=== PATIENT | female | born 1970 | race Caucasian/White ===

== ENCOUNTER 2022-04-18 08:34 | Emergency (ER) | payer OTHER, SELFPAY ==
[2022-04-18] VITALS (12 sets, daily range): BP systolic 116–158; BP diastolic 71–97; PULSE 80–97; RESP 16–22; TEMP 36.7; O2SAT 94–100; BMI 25.7
--- NOTE | 2022-04-18 08:52 | XRR_ITS ---
PROCEDURE INFORMATION: Exam: XR Chest Exam date and time: 04/18/2022 9:37 AM Age: 51 years old Clinical indication: Other: Epigastric pain; Additional info: Epigastric pain/chest pain TECHNIQUE: Imaging protocol: Radiologic exam of the chest. Views: 1 view. COMPARISON: CT abdomen pelvis w con* [id number] 04/18/2022 9:24 AM FINDINGS: Lungs: Unremarkable. No consolidation. Pleural spaces: Unremarkable. No pleural effusion. No pneumothorax. Heart/Mediastinum: Unremarkable. No cardiomegaly. Bones/joints: Unremarkable. XR/XR chest 1V portable [id number] IMPRESSION: No acute findings.
--- NOTE | 2022-04-18 08:53 | ECG_ITS ---
[facility] Test Date: 2022-04-18 Pat Name: Zara Hernandez Department: Room: Gender: Female Recovery Analyst: : 1970 Requested By: Moody Lockett Order Number: [id number] Reading MD: MARIE SANTOS Measurements Intervals [place] Rate: 92 P: 56 SD: 159 QRS: 1 QRSD: 89 T: 61 QT: 334 QTc: 413 Interpretive Statements SINUS RHYTHM POSSIBLE LEFT ATRIAL ENLARGEMENT [-0.1mV P-WAVE IN V1/V2] No previous ECG available for comparison Electronically Signed On 04-18-2022 17:40:14 CDT by MARIE SANTOS [id number]
--- NOTE | 2022-04-18 08:54 | CT_ITS ---
WS: [id number] CT ABDOMEN AND PELVIS WITH CONTRAST HISTORY: abdominal pain, n/v TECHNIQUE: Imaging performed of the abdomen and pelvis with IV contrast. Single phase imaging of the abdomen. Coronal and sagittal reformats are submitted. All CT scans at [facility] use at [address] one of these dose optimization techniques: automated exposure control; mA and/or kV adjustment per patient size (includes targeted exams where dose is matched to clinical indication); or iterative re construction. IV CONTRAST: Omnipaque 350; 100 mL IV. Oral contrast: No DLP: 413.75 mGy.cm COMPARISON: None available. Lower thorax: Lung bases are clear. Heart is normal size. Small hiatal hernia. Liver/biliary system: Normal size with no intrahepatic dilatation. No portal vein thrombus. Gallbladder: Contracted gallbladder with wall enhancement. No intrahepatic bile duct dilatation. Alth ough the common bile duct is not dilated there is wall enhancement consistent with cholangitis. Pancreas: Markedly abnormal pancreas. The pancreas is enlarged and edematous with a large amount of p eripancreatic edema extending from above the pancreas inferiorly to near the aortic bifurcation and i nto the gallbladder fossa. There is encasement of edema and inflammation surrounding the duodenal C-l oop. Pancreatic duct is not dilated. The entire pancreas does enhance. Spleen: Normal size spleen. No mass or infarct. Adrenal glands: Normal. Right kidney: Normal. Left kidney: Normal. Aorta: Mild atherosclerosis with no aneurysm. SMA and celiac axis are normally enhancing. Lymphadenopathy: None. Free fluid: No free fluid. GI tract: Nondistended stomach. Submucosal edema involving the antrum and duodenum. No small bowel ob struction. There is additional mild submucosal edema involving the splenic flexure and descending col on over a short segment. Normal appendix. A few scattered sigmoid diverticula. Abdominal wall: Unremarkable abdominal wall. No hernia. Pelvis: Well-distended urinary bladder. Enhancing RIGHT uterine mass measures 3.8 x 3.2 cm consistent with a fibroid. There is mild thickening of the cervix which needs to be evaluated. Bones: Unremarkable. CT/CT abdomen pelvis w con* [id number] IMPRESSION: 1. Severe changes of acute pancreatitis. There is marked diffuse peripancreati c edema and inflammation with extension to involve the adjacent stomach, duoden um, splenic flexure, common bile duct and gallbladder fossa. 2. Enhancement without dilatation of the common bile duct wall consistent with cholangitis. 3. Contracted gallbladder. 4. No hemorrhage or nonenhancement within the pancreas. There is no pseudocyst or abscess at this time. 5. Normal appendix. 6. Fibroid uterus. 7. Diffuse soft tissue thickening involving the cervix. Recommend transvaginal pelvic ultrasound imaging evaluation and BIOINFORMATICS DEVELOPER evaluation to exclude cervical ne oplasm.
--- NOTE | 2022-04-18 08:55 | W.ED.ABDPA2 ---
Documented by User: [email or web address] Galan 04/18/22 15:58 HPI - Abdominal Pain General: Chief Complaint: Abdominal Pain Stated Complaint: abd pain Time Seen by Provider: 04/18/22 08:35 History of Present Illness: Patient is a 51-year-old female comes to the ED with abdominal pain. Symptoms started approximately 1 week ago. She reports having abdominal pain, nausea and vomiting initially. For the first 2 days patient had nausea and vomiting with episodes of emesis every couple hours. Her nausea has improved and over the past several days but she still has some occasional episodes of emesis. She also reports having abdominal pain has been going on now for the past week. She reports lower abdominal pain that radiates up towards her stomach. She also reports having epigastric pain that she describes as a burning type pain. Pain radiates into her back as well. Pain is constant and worsens after she eats. She rates her pain currently a 6 out of 10. She has a decreased appetite. She had a fever on her first day of symptoms but has not had any other fevers over the past week. She has been trying to manage her symptoms by drinking clear liquids and eating soups, but she is not getting better. She reports normal daily bowel movements. Denies any constipation, diarrhea, blood in stool, dysuria or hematuria. Patient states that after 9 months of not having a period she just started having vaginal bleeding this week as well. Associated Symptoms: Reports nausea and vomiting; Denies chills, constipation, diarrhea, dysuria, fever(s), hematochezia and hematuria Review of Systems Const: Reports: change in appetite (Decreased); Denies: fever(s), chills or fatigue Eyes: Denies: change in vision or eye discomfort ENMT: Denies: throat pain, odynophagia, nasal discharge or nasal congestion Card: Reports: chest pain (Epigastric pain); Denies: palpitations, edema, swelling of feet/ankles, dyspnea on exertion or orthopnea Resp: Denies: dyspnea, productive cough or non-productive cough GI: Reports: abdominal pain, nausea and vomiting; Denies: diarrhea, constipation or hematochezia : Reports: vaginal bleeding; Denies: flank pain, dysuria or hematuria Musc: Denies: neck pain, back pain or extremity swelling Skin/Breast: Denies: rash or new lesions Neuro: Denies: headache(s), numbness in extremities or weakness in extremities PFS ED PFSH: Medical History No pertinent family history Surgical History No pertinent past surgical history Physical Exam Const: COMMON NORMALS: patient oriented x3, healthy appearing and alert GENERAL APPEARANCE: cooperative HENMT: COMMON NORMALS: normocephalic HEAD & SCALP: normocephalic MOUTH: Normal oral and palatal mucosa present THROAT: posterior oropharynx normal and uvula midline Neck/C-Spine: COMMON NORMALS: supple GENERAL: Yes normal visual inspection Resp: COMMON NORMALS: normal respiratory effort, No retractions, No use of accessory muscles and clear to auscultation bilaterally AUSCULTATION: clear to auscultation bilaterally Cardio: COMMON NORMALS: regular rate, regular rhythm, S1 normal heart sound present, S2 normal heart sound present, No gallops present (Cardio), No clicks present (Cardio), No murmurs present (Cardio) and Peripheral pulses 2+ throughout RATE: regular rate RHYTHM: regular rhythm HEART SOUNDS: S1 normal heart sound present and S2 normal heart sound present PERIPHERAL PULSES: Peripheral pulses 2+ throughout GI: COMMON NORMALS: Normal to inspection, nondistended, normoactive bowel sounds present, Soft to palpation and no masses PALPATION: Yes Soft to palpation and Yes Tenderness to palpation present (GI) (Epigastric and generalized abdominal tenderness.) : COMMON NORMALS: Yes no CVA tenderness BLADDER/KIDNEY EXAM: Yes no CVA tenderness Back/Pelvis: COMMON NORMALS: no CVA tenderness Extremity: COMMON NORMALS: normal to inspection Neuro: COMMON NORMALS: patient oriented x3 SENSORIUM/ORIENTATION: Yes alert GAIT: Yes Normal gait present Skin: GENERAL SKIN EXAM: dry skin Course Vital Signs: Vital signs: Vital Signs Temperature 98.0 F 04/18/22 09:52 Pulse Rate 97 04/18/22 16:08 Respiratory Rate 20 H 04/18/22 16:17 Blood Pressure 132/85 04/18/22 16:08 Pulse Oximetry 98 04/18/22 16:17 Oxygen Delivery Me thod 04/18/22 16:08 MDM - Abdominal Pain Medical Decision Making Patient is a 51-year-old female comes to the ED with abdominal pain. Symptoms started approximately 1 week ago. She reports having abdominal pain, nausea and vomiting initially. For the first 2 days patient had nausea and vomiting with episodes of emesis every couple hours. Her nausea has improved and over the past several days but she still has some occasional episodes of emesis. She also reports having abdominal pain has been going on now for the past week. She reports lower abdominal pain that radiates up towards her stomach. She also reports having epigastric pain that she describes as a burning type pain. Pain radiates into her back as well. Pain is constant and worsens after she eats. She rates her pain currently a 6 out of 10. She has a decreased appetite. Vitals are stable. Exam of patient shows generalized tenderness all throughout her abdomen and epigastric region of abdomen. Rest of her exam is benign. White blood cell count is 16.6. Lipase 29. Rest of her labs are unremarkable. CT of abdomen pelvis showed severe changes of acute pancreatitis and also noted some thickening involving the cervix which recommended transvaginal pelvic ultrasound done outpatient for further evaluation. I spoke with patient about CT findings and that she will need to get an outpatient transvaginal pelvic ultrasound. She is diagnosed with pancreatitis and I discussed case with Dr. Vasquez and he will be taking over care of patient and having her admitted. Lab Data I reviewed the patient's lab results. 04/18/22 09:10 04/18/22 09:10 Labs/Radiology: Radiology Impressions Chest X-Ray 04/18/22 08:52 IMPRESSION: No acute findings. Abdomen/Pelvis CT 04/18/22 08:54 IMPRESSION: 1. Severe changes of acute pancreatitis. There is marked diffuse peripancreatic edema and inflammation with extension to involve the adjacent stomach, duodenum, splenic flexure, common bile duct and gallbladder fossa. 2. Enhancement without dilatation of the common bile duct wall consistent with cholangitis. 3. Contracted gallbladder. 4. No hemorrhage or nonenhancement within the pancreas. There is no pseudocyst or abscess at this time. 5. Normal appendix. 6. Fibroid uterus. 7. Diffuse soft tissue thickening involving the cervix. Recommend transvaginal pelvic ultrasound imaging evaluation and APPLICATION DEVELOPMENT LIAISON evaluation to exclude cervical neoplasm. Laboratory Results WBC 16.6 10^3/uL (4.0-10.0) H 04/18/22 09:10 RBC 4.08 10^6/uL (4.1-5.3) L 04/18/22 09:10 Hgb 11.8 g/dL (11.5-15.3) 04/18/22 09:10 Hct 36.3 % (37.0-47.0) L 04/18/22 09:10 MCV 89.0 fl (81-99) 04/18/22 09:10 MCH 28.9 pg (28.0-34.0) 04/18/22 09:10 MCHC 32.5 g/dL (30.0-36.0) 04/18/22 09:10 RDW 12.9 % (12.1-15.1) 04/18/22 09:10 Plt Count 283 10^3/cmm (130-400) 04/18/22 09:10 MPV 10.3 fL (7.4-10.4) 04/18/22 09:10 Neut % (Auto) 84.9 % 04/18/22 09:10 Lymph % (Auto) 6.5 % 04/18/22 09:10 [place] % (Auto) 6.9 % 04/18/22 09:10 Eos % (Auto) 0.4 % 04/18/22 09:10 Baso % (Auto) 0.4 % 04/18/22 09:10 Neut # (Auto) 14.06 10^3/uL (1.8-7.7) H 04/18/22 09:10 Lymph # (Auto) 1.1 10^3/uL (0.8-4.8) 04/18/22 09:10 [place] # (Auto) 1.1 10^3/uL (0.2-0.9) H 04/18/22 09:10 Eos # (Auto) 0.1 10^3/uL (0.0-0.8) 04/18/22 09:10 Baso # (Auto) 0.1 10^3/uL (0.0-0.1) 04/18/22 09:10 Nucleated RBC % (auto) 0 % 04/18/22 09:10 Nucleated RBCs # 0.0 /100WBC 04/18/22 09:10 Sodium 135 mmol/L (136-145) L 04/18/22 09:10 Potassium 3.5 mmol/L (3.5-5.1) 04/18/22 09:10 Chloride 98 mmol/L (98-107) 04/18/22 09:10 Carbon Dioxide 24 mmol/L (22-29) 04/18/22 09:10 Anion Gap 16.5 (5-19) 04/18/22 09:10 BUN 9 mg/dL (6-20) 04/18/22 09:10 Creatinine 0.5 mg/dL (0.5-0.9) 04/18/22 09:10 GFR Calculation 129.1 mL/min (90-130) 04/18/22 09:10 Glucose 89 mg/dL (65-115) 04/18/22 09:10 Calculated Osmolality 278 mOsm/kg (285-295) L 04/18/22 09:10 Calcium 9.1 mg/dL (8.5-10.5) 04/18/22 09:10 Total Bilirubin 0.6 mg/dL (0.15-1.2) 04/18/22 09:10 AST 20 U/L (0-32) 04/18/22 09:10 ALT 64 U/L (0-33) H 04/18/22 09:10 Alkaline Phosphatase 263 U/L (35-105) H 04/18/22 09:10 Troponin T Baseline 6 ng/L (0-10) 04/18/22 09:10 Troponin T 120 Minute 6.00 ng/L (0-10) 04/18/22 11:16 Delta Troponin T 0 ABS# (0-10) 04/18/22 11:16 Troponin T Hi Sens 6Hr 11.34 ng/L (0-10) H 04/18/22 15:03 Troponin T Hi Sens 6Hr Delta 5.34 ng/L (0-12) 04/18/22 15:03 Total Protein 6.9 g/dL (6.6-8.7) 04/18/22 09:10 Albumin 3.1 g/dL (3.5-5.2) L 04/18/22 09:10 Globulin 3.8 g/dL (1.3-4.6) 04/18/22 09:10 Lipase 29 U/L (13-60) 04/18/22 09:10 Urine Color Yellow (Yellow) 04/18/22 09:00 Urine Appearance Hazy (CLEAR) A 04/18/22 09:00 Urine pH 7 (5-7) 04/18/22 09:00 Ur Specific [place] 1.010 (1.005-1.030) 04/18/22 09:00 Urine Protein Trace (Negative) 04/18/22 09:00 Urine Glucose (UA) Norm (Normal) 04/18/22 09:00 Urine Ketones 3+ (Negative) H 04/18/22 09:00 Urine Blood 3+ (Negative) H 04/18/22 09:00 Urine Nitrate Negative (Negative) 04/18/22 09:00 Urine Bilirubin Neg (Negative) 04/18/22 09:00 Urine Urobilinogen Norm mg/dL (Negative) 04/18/22 09:00 Ur Leukocyte Esterase Negative (Negative) 04/18/22 09:00 Urine RBC 0-4 /hpf (0-2) H 04/18/22 09:00 Urine WBC 5-10 /hpf (0-5) H 04/18/22 09:00 Ur Squamous Epith Cells 5-10 /hpf (0-5) H 04/18/22 09:00 Amorphous Sediment Not Reportable 04/18/22 09:00 Urine Bacteria 1+ /hpf (NONE) H 04/18/22 09:00 Urine Mucus 1+ /hpf 04/18/22 09:00 EKG Data EKG 1: EKG interpretation date: 04/18/22 Interpretation: Sinus rhythm, no ST segment elevation or depression seen. 92 bpm. Discharge Plan Discharge Patient Disposition: Xfer Short-Term Hosp Clinical Impression: Pancreatitis, Ascending cholangitis Condition: Stable Sign Out Sign Out Data: Patient Sign Out occurred on 04/18/22 at 11:42. Patient's care was discussed, and care was transferred from to Micheal Vasquez DO. Coding Level of Care Code ED Commercial Kitchen Service Technician for Chg Fwd Documented by User: Micheal Vasquez DO 04/19/22 07:10 HPI - Abdominal Pain General: Chief Complaint: Abdominal Pain Stated Complaint: abd pain Time Seen by Provider: 04/18/22 08:35 [facility] ED PFSH: Medical History No pertinent family history Surgical History No pertinent past surgical history Course Vital Signs: Vital signs: Vital Signs Temperature 98.0 F 04/18/22 09:52 Pulse Rate 97 04/18/22 16:08 Respiratory Rate 20 H 04/18/22 16:17 Blood Pressure 132/85 04/18/22 16:08 Pulse Oximetry 98 04/18/22 16:17 Oxygen Delivery Me thod 04/18/22 16:08 MDM - Abdominal Pain Medical Decision Making Patient is a 51-year-old female comes to the ED with abdominal pain. Symptoms started approximately 1 week ago. She reports having abdominal pain, nausea and vomiting initially. For the first 2 days patient had nausea and vomiting with episodes of emesis every couple hours. Her nausea has improved and over the past several days but she still has some occasional episodes of emesis. She also reports having abdominal pain has been going on now for the past week. She reports lower abdominal pain that radiates up towards her stomach. She also reports having epigastric pain that she describes as a burning type pain. Pain radiates into her back as well. Pain is constant and worsens after she eats. She rates her pain currently a 6 out of 10. She has a decreased appetite. Vitals are stable. Exam of patient shows generalized tenderness all throughout her abdomen and epigastric region of abdomen. Rest of her exam is benign. White blood cell count is 16.6. Lipase 29. Rest of her labs are unremarkable. CT of abdomen pelvis showed severe changes of acute pancreatitis and also noted some thickening involving the cervix which recommended transvaginal pelvic ultrasound done outpatient for further evaluation. I spoke with patient about CT findings and that she will need to get an outpatient transvaginal pelvic ultrasound. She is diagnosed with pancreatitis and I discussed case with Dr. Vasquez and he will be taking over care of patient and having her admitted. Patient care handoff received from Moody Lockett continuation of ED evaluation. I personally saw and evaluated patient and reperformed brownlee portions of E/M. Patient seen and examined by myself. I reviewed the history find it as outlined by Moody Lockett. Patient's lipase is not elevated but significant edema of the pancreas extending to adjacent organs including the common bile duct. Discussed with the hospitalist. We recommend that she really transferred to have GI available she may need this lesion biopsied additionally if this progresses to a a sending cholangitis she will need GI specialty and may need common bile duct stenting at some point. We were able to get GI at [facility] to accept. We will transfer to the care of hospitalist program GI will be consulted. Patient remains stable. Discussed the findings with her including the plan and the reasoning for transfer. She and her both expressed understanding. Patient given Zosyn here transfer [facility] ambulance, stable at the time. Lab Data 04/18/22 09:10 04/18/22 09:10 Labs/Radiology: Radiology Impressions Chest X-Ray 04/18/22 08:52 IMPRESSION: No acute findings. Abdomen/Pelvis CT 04/18/22 08:54 IMPRESSION: 1. Severe changes of acute pancreatitis. There is marked diffuse peripancreatic edema and inflammation with extension to involve the adjacent stomach, duodenum, splenic flexure, common bile duct and gallbladder fossa. 2. Enhancement without dilatation of the common bile duct wall consistent with cholangitis. 3. Contracted gallbladder. 4. No hemorrhage or nonenhancement within the pancreas. There is no pseudocyst or abscess at this time. 5. Normal appendix. 6. Fibroid uterus. 7. Diffuse soft tissue thickening involving the cervix. Recommend transvaginal pelvic ultrasound imaging evaluation and APPLICATION DEVELOPMENT LIAISON evaluation to exclude cervical neoplasm. Laboratory Results WBC 16.6 10^3/uL (4.0-10.0) H 04/18/22 09:10 RBC 4.08 10^6/uL (4.1-5.3) L 04/18/22 09:10 Hgb 11.8 g/dL (11.5-15.3) 04/18/22 09:10 Hct 36.3 % (37.0-47.0) L 04/18/22 09:10 MCV 89.0 fl (81-99) 04/18/22 09:10 MCH 28.9 pg (28.0-34.0) 04/18/22 09:10 MCHC 32.5 g/dL (30.0-36.0) 04/18/22 09:10 RDW 12.9 % (12.1-15.1) 04/18/22 09:10 Plt Count 283 10^3/cmm (130-400) 04/18/22 09:10 MPV 10.3 fL (7.4-10.4) 04/18/22 09:10 Neut % (Auto) 84.9 % 04/18/22 09:10 Lymph % (Auto) 6.5 % 04/18/22 09:10 [place] % (Auto) 6.9 % 04/18/22 09:10 Eos % (Auto) 0.4 % 04/18/22 09:10 Baso % (Auto) 0.4 % 04/18/22 09:10 Neut # (Auto) 14.06 10^3/uL (1.8-7.7) H 04/18/22 09:10 Lymph # (Auto) 1.1 10^3/uL (0.8-4.8) 04/18/22 09:10 [place] # (Auto) 1.1 10^3/uL (0.2-0.9) H 04/18/22 09:10 Eos # (Auto) 0.1 10^3/uL (0.0-0.8) 04/18/22 09:10 Baso # (Auto) 0.1 10^3/uL (0.0-0.1) 04/18/22 09:10 Nucleated RBC % (auto) 0 % 04/18/22 09:10 Nucleated RBCs # 0.0 /100WBC 04/18/22 09:10 Sodium 135 mmol/L (136-145) L 04/18/22 09:10 Potassium 3.5 mmol/L (3.5-5.1) 04/18/22 09:10 Chloride 98 mmol/L (98-107) 04/18/22 09:10 Carbon Dioxide 24 mmol/L (22-29) 04/18/22 09:10 Anion Gap 16.5 (5-19) 04/18/22 09:10 BUN 9 mg/dL (6-20) 04/18/22 09:10 Creatinine 0.5 mg/dL (0.5-0.9) 04/18/22 09:10 GFR Calculation 129.1 mL/min (90-130) 04/18/22 09:10 Glucose 89 mg/dL (65-115) 04/18/22 09:10 Calculated Osmolality 278 mOsm/kg (285-295) L 04/18/22 09:10 Calcium 9.1 mg/dL (8.5-10.5) 04/18/22 09:10 Total Bilirubin 0.6 mg/dL (0.15-1.2) 04/18/22 09:10 AST 20 U/L (0-32) 04/18/22 09:10 ALT 64 U/L (0-33) H 04/18/22 09:10 Alkaline Phosphatase 263 U/L (35-105) H 04/18/22 09:10 Troponin T Baseline 6 ng/L (0-10) 04/18/22 09:10 Troponin T 120 Minute 6.00 ng/L (0-10) 04/18/22 11:16 Delta Troponin T 0 ABS# (0-10) 04/18/22 11:16 Troponin T Hi Sens 6Hr 11.34 ng/L (0-10) H 04/18/22 15:03 Troponin T Hi Sens 6Hr Delta 5.34 ng/L (0-12) 04/18/22 15:03 Total Protein 6.9 g/dL (6.6-8.7) 04/18/22 09:10 Albumin 3.1 g/dL (3.5-5.2) L 04/18/22 09:10 Globulin 3.8 g/dL (1.3-4.6) 04/18/22 09:10 Lipase 29 U/L (13-60) 04/18/22 09:10 Urine Color Yellow (Yellow) 04/18/22 09:00 Urine Appearance Hazy (CLEAR) A 04/18/22 09:00 Urine pH 7 (5-7) 04/18/22 09:00 Ur Specific [place] 1.010 (1.005-1.030) 04/18/22 09:00 Urine Protein Trace (Negative) 04/18/22 09:00 Urine Glucose (UA) Norm (Normal) 04/18/22 09:00 Urine Ketones 3+ (Negative) H 04/18/22 09:00 Urine Blood 3+ (Negative) H 04/18/22 09:00 Urine Nitrate Negative (Negative) 04/18/22 09:00 Urine Bilirubin Neg (Negative) 04/18/22 09:00 Urine Urobilinogen Norm mg/dL (Negative) 04/18/22 09:00 Ur Leukocyte Esterase Negative (Negative) 04/18/22 09:00 Urine RBC 0-4 /hpf (0-2) H 04/18/22 09:00 Urine WBC 5-10 /hpf (0-5) H 04/18/22 09:00 Ur Squamous Epith Cells 5-10 /hpf (0-5) H 04/18/22 09:00 Amorphous Sediment Not Reportable 04/18/22 09:00 Urine Bacteria 1+ /hpf (NONE) H 04/18/22 09:00 Urine Mucus 1+ /hpf 04/18/22 09:00 Discharge Plan Discharge Patient Disposition: Xfer Short-Term Hosp Clinical Impression: Pancreatitis, Ascending cholangitis Condition: Stable Sign Out Sign Out Data: Patient Sign Out occurred on 04/18/22 at 11:42. Patient's care was discussed, and care was transferred from to Micheal Vasquez DO. Coding Level of Care Code ED Commercial Kitchen Service Technician for Chelsey Hager
[2022-04-18] MEDS: ondansetron 2 mg/ML SDV 2 mL 4 MG IVP (09:11)
[2022-04-18] MEDS: morphine 4 mg/mL SDV 1 mL IVP ×4 (09:14→16:17)
[2022-04-18 09:21] LABS: Basophils # 0.1 10^3/uL (0.0-0.1); Basophils % 0.4 %; Eosinophils # 0.1 10^3/uL (0.0-0.8); Eosinophils % 0.4 %; Hematocrit 36.3 % (37.0-47.0); Hemoglobin 11.8 g/dL (11.5-15.3); Lymphocytes # 1.1 10^3/uL (0.8-4.8); Lymphocytes % 6.5 %; Mean Corpuscular HGB Conc 32.5 g/dL (30.0-36.0); Mean Corpuscular Hemoglobin 28.9 pg (28.0-34.0); Mean Platelet Volume 10.3 fL (7.4-10.4); Monocytes # 1.1 10^3/uL (0.2-0.9); Monocytes % 6.9 %; Neutrophils # 14.06 10^3/uL (1.8-7.7); Neutrophils % 84.9 %; Nucleated Red Blood Cells % 0 %; Platelet Count 283 10^3/cmm (130-400); Red Blood Count 4.08 10^6/uL (4.1-5.3); Red Cell Distribution Width 12.9 % (12.1-15.1); White Blood Count 16.6 10^3/uL (4.0-10.0)
[2022-04-18 09:41] LABS: Alanine Aminotransferase 64 U/L (0-33); Albumin Level 3.1 g/dL (3.5-5.2); Alkaline Phosphatase 263 U/L (35-105); Anion Gap 16.5 (5-19); Aspartate Amino Transferase 20 U/L (0-32); Blood Urea Nitrogen 9 mg/dL (6-20); Calcium 9.1 mg/dL (8.5-10.5); Carbon Dioxide 24 mmol/L (22-29); Chloride 98 mmol/L (98-107); Globulin 3.8 g/dL (1.3-4.6); Glomerular Filtration Rate 129.1 mL/min (90-130); Glucose 89 mg/dL (65-115); Lipase 29 U/L (13-60); Osmolality Calculated 278 mOsm/kg (285-295); Potassium 3.5 mmol/L (3.5-5.1); Sodium 135 mmol/L (136-145); Total Bilirubin 0.6 mg/dL (0.15-1.2); Total Protein 6.9 g/dL (6.6-8.7)
[2022-04-18] MEDS: iohexol 350 mg/mL 500 mL Btl (per mL) IV (09:41)
[2022-04-18 09:42] LABS: Troponin(5th) Baseline 6 ng/L (0-10)
[2022-04-18 09:59] LABS: Urine Appearance Hazy (CLEAR); Urine Color Yellow (Yellow); pH Urine 7 (5-7)
[2022-04-18 10:00] LABS: Add Urine Microscopic? YES; Bilirubin Urine Neg (Negative); Blood Urine 3+ (Negative); Glucose Urine UA Norm (Normal); Ketones Urine 3+ (Negative); Leukocyte Esterase Urine Negative (Negative); Nitrate Urine Negative (Negative); Protein Urine Trace (Negative); RBC Urine 0-4 /hpf (0-2); Urobilinogen Urine Norm (Negative)
[2022-04-18 10:01] LABS: Add Urine Culture? No; Bacteria Urine 1+ /hpf; Mucus Urine 1+ /hpf
--- NOTE | 2022-04-18 10:53 | ECG_ITS ---
[facility] Test Date: 2022-04-18 Pat Name: Zara Hernandez Department: Room: Gender: Female Medicare Coordinator: : 1970 Requested By: Moody Lockett Order Number: [id number] Reading MD: MARIE SANTOS Measurements Intervals [place] Rate: 85 P: 55 VA: 156 QRS: -6 QRSD: 87 T: 60 QT: 340 QTc: 405 Interpretive Statements SINUS RHYTHM Compared to ECG 04/18/2022 09:05:20 No significant changes Electronically Signed On 04-18-2022 17:41:57 CDT by MARIE SANTOS [id number]
[2022-04-18] MEDS: sodium chloride 0.9% 1,000 ML 999 ML IV (11:41)
[2022-04-18 11:53] LABS: Troponin 5 2HR Delta 0 ABS# (0-10)
[2022-04-18] MEDS: piperacillin-tazobactam 3.375 GM in sodium chloride 0.9% (plus) 50 ML IV (13:08)
--- NOTE | 2022-04-18 14:53 | ECG_ITS ---
[facility] Test Date: 2022-04-18 Pat Name: Zara Hernandez Department: Room: Gender: Female Certified Hearing Instrument Dispenser: : 1970 Requested By: Moody Lockett Order Number: [id number] Anusha MD: MARIE SANTOS Measurements Intervals [place] Rate: 85 P: 51 [place]: 172 QRS: -13 QRSD: 90 T: 44 QT: 345 QTc: 411 Interpretive Statements SINUS RHYTHM POSSIBLE LEFT ATRIAL ENLARGEMENT [-0.1mV P-WAVE IN V1/V2] POSSIBLE RIGHT VENTRICULAR CONDUCTION DELAY [RSR (QR) IN V1/V2] Compared to ECG 04/18/2022 11:10:41 No significant changes Electronically Signed On 04-18-2022 17:41:46 CDT by MARIE SANTOS [id number]
[2022-04-18 15:32] LABS: Troponin 5 6HR 11.34 ng/L (0-10)
[2022-04-18 15:33] LABS: Troponin 5 6HR Delta 5.34 ng/L (0-12)
--- NOTE | 2022-04-19 13:22 | DCPLANNER ---
import manager called patient due to no primary care physician - patients daughter stated that patient declines at this time.
== END 2022-04-18 16:27 | disposition short-term general hospital (02) ==
PROVIDERS: Physician Assistant; Emergency Provider Family Medicine
DX: K85.90 Acute pancreatitis without necrosis or infection, unspecified (principal); K83.09 Other cholangitis; D25.9 Leiomyoma of uterus, unspecified
CPT/HCPCS: 36415; 71045; 74177; 80053; 81001; 83690; 84484; 85025; 93005; 96365; 96366; 96375; 96376; 99285; J2270; J2405; J2543; J7030; Q9967

== ENCOUNTER → 2022-05-17 08:40 | Outpatient (BNVA) | payer OTHER, SELFPAY | PROVIDERS: Visit Provider Family Medicine | DX: Z76.89 Persons encountering health services in other specified circumstances (principal); Z13.220 Encounter for screening for lipoid disorders; Z13.6 Encounter for screening for cardiovascular disorders; N88.9 Noninflammatory disorder of cervix uteri, unspecified | CPT/HCPCS: 80053; 80061; 84443; 85025 ==

== ENCOUNTER 2023-01-03 07:41 | Outpatient (CLI) | payer OTHER, SELFPAY ==
--- NOTE | 2023-01-03 07:52 | MM_ITS ---
WS: [id number] SCREENING DIGITAL TOMOSYNTHESIS MAMMOGRAM WITH CAD HISTORY: SCREENING COMPARISON: None available. Bilateral CC and MLO with tomosynthesis views submitted. Synthetic mammography reviewed. Computer aid ed detection analyzed. Breast composition: There are scattered areas of fibroglandular density. No suspicious masses, microc alcifications or architectural distortion. IMPRESSION: MM/[place] [id number] BI-RADS: 1-Negative FOLLOW UP: 1 Year Follow-up
== END 2023-01-03 07:42 | disposition home or self-care (01) ==
LOC: RAD 07:41
PROVIDERS: PCP Family Medicine; Visit Provider Family Medicine
DX: Z12.31 Encounter for screening mammogram for malignant neoplasm of breast (principal)
CPT/HCPCS: 77063; 77067

== ENCOUNTER 2024-04-04 07:50 | Outpatient (CLI) | payer OTHER, SELFPAY ==
--- NOTE | 2024-04-04 07:58 | MM_ITS ---
WS: [id number] SCREENING DIGITAL BREAST TOMOSYNTHESIS MAMMOGRAM WITH CAD HISTORY: SCREENING COMPARISON: 01/03/2023 Bilateral CC and MLO with tomosynthesis and synthetic mammography submitted. Computer aided detection analyzed. Breast composition: There are scattered areas of fibroglandular density. Focal asymmetry of increased density in the anterior, slightly medial LEFT breast. This was also present on the prior study but appears slightly more prominent today which may be due to involution of the adjacent breast fibroglandular tissue. This asymmetry measures 10 x 7 x 12 mm. No associated calcifications or distortion. There are a few benign calcifications in the breast. MM/MM scr tomosynthesis [id number] IMPRESSION: BI-RADS: 0 - Incomplete: Need additional imaging evaluation. FOLLOW UP: Need Additional Imaging LEFT breast: Spot compression views (CC and MLO). True ML. Ultrasound to follow if abnormality persists.
== END 2024-04-04 07:51 | disposition home or self-care (01) ==
LOC: RAD 07:52
PROVIDERS: PCP Family Medicine; Visit Provider Family Medicine
DX: Z12.31 Encounter for screening mammogram for malignant neoplasm of breast (principal); R92.323 Mammographic fibroglandular density, bilateral breasts; N63.20 Unspecified lump in the left breast, unspecified quadrant; R92.1 Mammographic calcification found on diagnostic imaging of breast
CPT/HCPCS: 77063; 77067